=== PATIENT | male | born 1945 | race Caucasian/White ===

== ENCOUNTER 2018-07-07 15:18 | Inpatient (IN) | payer MEDICARE, OTHER ==
[~2018-07-07] VITALS: Ht 170.2 cm; Wt 67.3 kg
[2018-07-07] MEDS ORDERED: SODIUM CHLORIDE FLUSH 10ML SYR IVF ONE (15:30)
--- NOTE | 2018-07-07 15:46 | NUR ---
PT WC'D TO ROOM 28 W/ C/O LOOP MONITOR SHOWING MULTIPL 7-8 SECOND PAUSES. PT ALSO HAS HX A FIB HAD CVA 21 DAYS AGO. PT RESTING ON GURNEY. NADN. MONITORS APPLIED. PADS PLACED. CRASH CART AT BEDSIDE. 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
--- NOTE | 2018-07-07 15:51 | NUR ---
PT RESTING ON GURNEY. NADN. MC.
[2018-07-07] MEDS ORDERED: BISACODYL 10 MG SUPP PR PRN (16:00)
[2018-07-07] MEDS ORDERED: ACETAMINOPHEN 325 MG TABLET PO PRN (16:00)
[2018-07-07] MEDS ORDERED: CEFAZOLIN PMX 1GM/50ML 50 ML IVPB ONE (16:00)
[2018-07-07] MEDS ORDERED: ZOLPIDEM 5MG TABLET PO PRN (16:00)
[2018-07-07] MEDS ORDERED: ONDANSETRON 2MG/ML, 2ML IVP PRN (16:00)
[2018-07-07] MEDS ORDERED: APIX5TAB PO (16:01)
[2018-07-07] MEDS ORDERED: ATOR-2 PO (16:01)
[2018-07-07 16:13] LABS: BASOPHILS # (AUTO) 0.06 x10^3/uL (0-0.1); BASOPHILS % (AUTO) 1 % (0-1); EOSINOPHILS # (AUTO) 0.16 x10^3/uL (0-0.4); EOSINOPHILS % (AUTO) 2 % (1-7); LYMPHOCYTES # (AUTO) 2.59 x10^3/uL (1-3.4); LYMPHOCYTES % (AUTO) 36 % (22-44); MD NO; MEAN CORPUSCULAR HEMOGLOBIN 30.4 pg (27.5-34.5); MEAN CORPUSCULAR HGB CONC 32.6 g/dL (33.2-36.2); MEAN CORPUSCULAR VOLUME 93.2 fL (81-97); MEAN PLATELET VOLUME 7.6 fL (7.4-10.4); MONOCYTES # (AUTO) 0.56 x10^3/uL (0.2-0.8); MONOCYTES % (AUTO) 8 % (2-9); NEUTROPHILS # (AUTO) 3.76 x10^3/uL (1.8-6.8); NEUTROPHILS % (AUTO) 53 % (42-75); PLATELET COUNT 359 x10^3/uL (130-400); RED BLOOD COUNT 4.93 x10^6/uL (4.38-5.82); RED CELL DISTRIBUTION WIDTH 13.7 % (9.4-14.8)
--- NOTE | 2018-07-07 16:15 | NUR ---
Note dhaval in ED - 07/07/18 at 1835 by ERICK ATTEMPTED TO CALL [facility] EXT. [phone]. NO ANSWER.
[2018-07-07] MEDS ORDERED: CEFAZOLIN PMX 1GM/50ML 50 ML ONE (16:21)
[2018-07-07 16:22] LABS: INTERNATIONAL NORMALIZED RATIO 1.07 (0.93-1.1); PROTHROMBIN TIME 11.2 Seconds (9.6-11.5)
[2018-07-07 16:23] LABS: ALBUMIN 3.9 g/dL (3.4-5.0); ANION GAP 5 mmol/L (5-15); CALCIUM 8.8 mg/dL (8.5-10.1); CHLORIDE 107 mmol/L (98-107); CREATININE 1.04 mg/dL (0.7-1.3)
--- NOTE | 2018-07-07 16:29 | NUR ---
Gama puentes in ED - 07/07/18 at 1835 by ERICK SPOKE W/ NURSES STATION AT [facility]. RN TO CALL THIS RN BACK FOR REPORT.
--- NOTE | 2018-07-07 17:06 | NUR ---
PT RESTING ON GURNEY. NADN. MC.
--- NOTE | 2018-07-07 18:07 | NUR ---
SPOKE W/ DR. CHANDLER WHO STATES PT CAN EAT TONIGHT AND IS NPO AT MIDNIGHT.
--- NOTE | 2018-07-07 18:19 | NUR ---
PT PROVIDED W/ DINNER TRAY.
[2018-07-07] MEDS: SODIUM CHLORIDE 0.9% 1,000 ML IV SCH (18:24)
--- NOTE | 2018-07-07 18:52 | NUR ---
BEDSIDE REPORT RECEIVED FROM RIGO ANDERSON. ASSUMED CARE OF PT. PT CURRENTLY RESTING ON GURTERA. NAD NOTED. SKIN PWD. RESP ALBINO AND EQUAL. PT SIN[place] ON MONITOR. PACER PADS IN PLACE. PT DENIES PAIN/DIZZINESS. PT AO X 4. RESP EVEN AND EQAUL. CALL LIGHT WITHIN REACH. WILL CONT TO MONITOR PT.
--- NOTE | 2018-07-07 19:45 | NUR ---
REPORT TO RIGO JOHNSON ON TELE. PT AO X 4. SKIN PWD .RESP EVEN AND EQAUL. PT SB ON [employer] IN THE HIGH 40'S-LOW 50'S. PT DENIES PAIN/SOB/DIZZINESS AT THIS TIME. AT BEDSIDE. PT ON CONT BP, CARDIAC AND O2 MONITORS. CALL LIGHT WITHIN REACH.
[2018-07-07 20:03] VITALS: BP 149/82
[2018-07-07] MEDS: SODIUM CHLORIDE FLUSH 10ML SYR IVF SCH (20:37)
[2018-07-07] MEDS: ATORVASTATIN 40 MG TABLET PO SCH (20:37)
[2018-07-08 00:59] VITALS: BP 123/73
[2018-07-08] MEDS: SODIUM CHLORIDE 0.9% 1,000 ML IV SCH ×3 (05:56→21:09)
[2018-07-08 07:45] VITALS: BP 121/69
[2018-07-08] MEDS: SODIUM CHLORIDE FLUSH 10ML SYR IVF SCH ×2 (09:00→21:08)
[2018-07-08 12:19] VITALS: BP 116/74
[2018-07-08] MEDS ORDERED: FENTANYL PF 250 MCG/5ML ONE (13:52)
[2018-07-08] MEDS ORDERED: MIDAZOLAM 1 MG/ML, 5ML ONE (13:52)
[2018-07-08] MEDS ORDERED: LIDOCAINE 1%, 20ML ONE (13:52)
[2018-07-08] MEDS ORDERED: CEFAZOLIN 1,000 MG ONE (13:53)
[2018-07-08] MEDS ORDERED: LIDOCAINE-MPF 1%, 5ML ONE (15:07)
[2018-07-08] MEDS ORDERED: HOLD MEDICATION MC PRN (15:30)
[2018-07-08] MEDS ORDERED: HYDROcodone/APAP 5/325 TABLET PO PRN (15:30)
[2018-07-08 19:51] VITALS: BP 124/78
[2018-07-08] MEDS ORDERED: SODIUM CHLORIDE FLUSH 10ML SYR IVF SCH (21:00)
[2018-07-08] MEDS: ATORVASTATIN 40 MG TABLET PO SCH (21:06)
[2018-07-08] MEDS: CEFAZOLIN PMX 1GM/50ML 50 ML IVPB SCH (21:45)
[2018-07-09 00:33] VITALS: BP 122/65
[2018-07-09] MEDS: CEFAZOLIN PMX 1GM/50ML 50 ML IVPB SCH ×2 (06:04→14:12)
[2018-07-09] MEDS: SODIUM CHLORIDE FLUSH 10ML SYR IVF SCH (07:08)
[2018-07-09 09:04] VITALS: BP 116/67
[2018-07-09] MEDS ORDERED: ACET325T14 PO (10:01)
== END 2018-07-09 15:55 | disposition home or self-care (01) | DRG 242 ==
LOC: ED 15:43 → EDIP 15:44 → ED 16:35 → 5SO 18:42 → DCLOUNGE 07-09 15:44
PROVIDERS: ADMIT Internal Medicine Cardiovascular Disease; ATTEND Internal Medicine Cardiovascular Disease
PROC: 02H63JZ Insertion of Pacemaker Lead into Right Atrium, Percutaneous Approach (ICD-10-PCS; principal; 2018-07-08)
PROC: 02HK3JZ Insertion of Pacemaker Lead into Right Ventricle, Percutaneous Approach (ICD-10-PCS; 2018-07-08)
PROC: 0JH606Z Insertion of Pacemaker, Dual Chamber into Chest Subcutaneous Tissue and Fascia, Open Approach (ICD-10-PCS; 2018-07-08)
PROC: 0JPT02Z Removal of Monitoring Device from Trunk Subcutaneous Tissue and Fascia, Open Approach (ICD-10-PCS; 2018-07-08)
DX: I49.5 Sick sinus syndrome (principal); I63.9 Cerebral infarction, unspecified; D68.69 Other thrombophilia; I48.0 Paroxysmal atrial fibrillation; I45.5 Other specified heart block; E78.5 Hyperlipidemia, unspecified; Z79.01 Long term (current) use of anticoagulants; Z86.73 Personal history of transient ischemic attack (TIA), and cerebral infarction without residual deficits; Z79.899 Other long term (current) drug therapy; Z98.49 Cataract extraction status, unspecified eye
CPT/HCPCS: 33208; 36415; 71045; 71046; 80048; 82040; 85025; 85610; 93005; 93306; 96365; 99156; 99157; 99285; C1779; C1785; C1892; G0378; J0690; J2250; J3010; J7030